=== PATIENT | female | born 1955 | race Caucasian/White ===

== ENCOUNTER 2017-06-07 09:43 | Day surgery (SDC) | payer OTHER ==
[~2017-06-07] VITALS: Ht 165.1 cm; Wt 60.8 kg
[~2017-06-07 09:43] MED LIST: 0.9% Sodium Chloride 1,000 ML IV SCH; CALC-243 PO; LEVO88TA4 PO; OMEG500C PO; Sodium Chloride LOK Flush 10 mL Syringe IV PRN; ZOV800 PO; fentaNYL-PF 50 mCg/mL 2 mL Inj IVPUSH PRN
[2017-06-07 10:02] VITALS: BP 133/83; PULSE 97; RESP 14; O2SAT 98
[2017-06-07 11:15] VITALS: BP 119/67; PULSE 76; RESP 12; O2SAT 99
[2017-06-07 11:20] VITALS: BP 113/67; PULSE 71; RESP 12; O2SAT 99
[2017-06-07 11:33] VITALS: BP 111/67; PULSE 70; RESP 14; O2SAT 99
--- NOTE | 2017-06-07 14:24 | ENDO ---
[address] [address] ENDOSCOPY PROCEDURE PATIENT: REYES LOVE : 1955 MR#: [id number] ADMIT: 06/07/2017 JOB ID: [id number] CORRECTED REPORT: DATE OF SERVICE: 06/07/2017 PROCEDURE: Colonoscopy. INDICATIONS: Screening. The patient's ASA classification is two. Mallampati score is two. MEDICATIONS: Versed at 5 mg, fentanyl 125 mcg. INSTRUMENT USED: PCFH-180AL PREPARATION QUALITY: Fair. PROCEDURAL DETAILS: After informed consent was obtained, the patient was brought into the GI suite, where she was placed on oxygen via nasal cannula and monitored with continuous pulse oximeter, telemetry, and blood pressure monitoring. A time-out was performed. Then, she was placed in a left lateral decubitus position. Medications were administered for sedation. Digital rectal exam was performed, which was unremarkable. The colonoscope was then inserted into the rectum and advanced under direct visualization to the cecum, which was identified by the presence of the ileocecal valve and appendiceal orifice. Once the cecum was reached, the colonoscope was withdrawn back into the rectum. Mucosa and lumen were examined. In the rectum, retroflexion was performed. Following retroflexion, remaining air in the rectum was suctioned, and procedure was completed. FINDINGS: 1. In the proximal transverse colon, there was a 3-4 mm flat polyp that was removed using cold biopsy forceps. 2. Just distal to this, there was a 3-4 mm flat with sessile component polyp. Appearance of the polyp was suggestive of a serrated adenoma. Polyp was removed using cold snare. The remainder of the colon exam was otherwise unremarkable. IMPRESSION: Two transverse colon polyps. RECOMMENDATIONS: Repeat colonoscopy in five years. COMPLICATIONS: None. ESTIMATED BLOOD LOSS: Less than 5 mL Corrected by GS 06/11/17 DOS.
--- NOTE | 2017-06-11 16:24 | PATH ---
SURGICAL PATHOLOGY Attending Physician:Mary Vieyra CASE STATUS: Signed Out PATIENT NAME: REYES LOVE PID: [id number] : 1955 DATE COLLECTED:06/07/2017 20:04 SPECIMEN: Colon, Polyp CLINICAL HISTORY: 1). TRANSVERSE POLYP X2 FINAL DIAGNOSIS: 1.TRANSVERSE COLON POLYPS, BIOPSIES: SERRATED POLYP, FAVOR SESSILE SERRATED ADENOMA X1. COLONIC MUCOSA WITH HYPERPLASTIC FEATURES X1. ADDITIONAL STEP-SECTIONS ARE EXAMINED. ICD10 D12.6 GROSS DESCRIPTION: The specimen is received in one formalin filled container labeled with the patient's name, sublabeled "transverse polyp" and consists of 3 tiny portions of tissue which aggregate to 0.2 x 0.2 x 0.1 CM. The specimen is entirely submitted in one cassette. 06/07/2017DC MICRO DESCRIPTION: See diagnosis. ICD-9 CODES: CPT CODES: 1: 70937 Electronically Signed Out Colin Amado MD, Ph.D. [facility] [address], [place] [address] Technical component performed at [facility], [address] [place] [address] Ave[address], [place], [address]
== END 2017-06-07 23:59 | disposition home or self-care (01) ==
LOC: END 09:43
PROVIDERS: ATTEND Internal Medicine Gastroenterology
DX: Z12.11 Encounter for screening for malignant neoplasm of colon (principal); D12.3 Benign neoplasm of transverse colon; E03.9 Hypothyroidism, unspecified; M81.0 Age-related osteoporosis without current pathological fracture; Z80.8 Family history of malignant neoplasm of other organs or systems